=== PATIENT | female | born 1945 | race African-American/Black ===

== ENCOUNTER 2023-05-23 12:15 | Emergency (ER) | payer OTHER | END 2023-05-23 14:26 | disposition home or self-care (01) | LOC: CSHERS 12:15 | DX: S60.511A Abrasion of right hand, initial encounter (principal); E11.9 Type 2 diabetes mellitus without complications; I10 Essential (primary) hypertension; V89.2XXA Person injured in unspecified motor-vehicle accident, traffic, initial encounter ==